=== PATIENT | female | born 1990 | race Caucasian/White ===

== ENCOUNTER 2017-04-27 06:59 | Emergency (ER) | payer MEDICAID ==
[~2017-04-27] VITALS: Ht 162.6 cm; Wt 50.0 kg
[2017-04-27] MEDS ORDERED: ALBUTEROL SULFATE 2.5 MG/0.5 ML NEB SOLUTION NEB ONE (07:15)
[2017-04-27] MEDS ORDERED: IPRATROPIUM BROMIDE 0.5 MG/2.5 ML NEB SOLUTION NEB ONE (07:15)
[2017-04-27 08:57] VITALS: BP 111/72
[2017-04-27] MEDS ORDERED: ALBUTEROL SULFATE HFA 90 MCG/PUFF 8 GM INHALER IH ONE (09:30)
== END 2017-04-27 09:57 | disposition home or self-care (01) ==
LOC: EMS 07:03
DX: J98.01 Acute bronchospasm (principal); J30.2 Other seasonal allergic rhinitis; J34.89 Other specified disorders of nose and nasal sinuses; J45.909 Unspecified asthma, uncomplicated
CPT/HCPCS: 81025; 94640; 99284; J7613; J3535

== ENCOUNTER 2017-07-04 23:44 | Emergency (ER) | payer MEDICAID ==
[~2017-07-04] VITALS: Ht 162.6 cm; Wt 50.0 kg
[2017-07-04 23:46] VITALS: BP 128/86
== END 2017-07-05 02:50 | disposition left against medical advice (07) ==
LOC: EMS 23:47
DX: R05 Cough (principal); Z53.21 Procedure and treatment not carried out due to patient leaving prior to being seen by health care provider